=== PATIENT | male | born 1995 | race Caucasian/White ===

== ENCOUNTER 2022-01-07 09:13 | Emergency (ER) | payer SELFPAY ==
[~2022-01-07 09:13] MED LIST: BENTYL 10MG CAP10 MG PO; NAPROSYN500 MG PO; ZOFRAN4 MG PO
[2022-01-07 10:25] LABS: HEMOGLOBIN 14.9 gm/dl (14.0-17.5); RED BLOOD COUNT 5.02 M/UL (4.20-5.50)
[2022-01-07 10:55] LABS: BUN/CREATININE RATIO 9 (0-10)
[2022-01-07] MEDS ORDERED: IBUPROFEN600 MG PO (13:05)
[2022-01-07] MEDS ORDERED: BACTRIM DS TAB1 EACH PO (13:05)
== END 2022-01-07 13:15 | disposition home or self-care (01) ==
LOC: ER1 09:13
PROVIDERS: Nurse Practitioner
DX: L02.212 Cutaneous abscess of back [any part, except buttock and flank] (principal); I10 Essential (primary) hypertension; Z88.1 Allergy status to other antibiotic agents
CPT/HCPCS: 10060; 72132; 80053; 80307; 81001; 83605; 85025; 85652; 86140; 87040; 87070; 87205; 96374; 99283; J0696; Q9967

== ENCOUNTER 2022-03-31 09:04 | Emergency (ER) | payer SELFPAY ==
[~2022-03-31 09:04] MED LIST changes: +BACTRIM DS TAB1 EACH PO; +IBUPROFEN600 MG PO
== END 2022-03-31 10:25 | disposition home or self-care (01) ==
LOC: ER1 09:04
DX: U07.1 COVID-19 (principal); Z88.1 Allergy status to other antibiotic agents
CPT/HCPCS: 99283; U0002